=== PATIENT | female | born 1935 | race African-American/Black ===

== ENCOUNTER 2021-01-17 09:56 | Emergency (ER) | payer OTHER ==
[~2021-01-17] VITALS: Ht 154.9 cm; Wt 42.3 kg
[~2021-01-17 09:56] MED LIST: ALEN35TA47 PO; AMLO-187 PO; ATOR20TA58 PO; CALC500T54 PO; CARV25TA2 PO; CLOP75TA PO; FAMO20TA5 PO; HYDR-2868 PO; LACT1CAP19 PO; MAGN71.5 PO; OLME20TA17 PO; POTA-121 PO
--- NOTE | 2021-01-17 10:27 | PHYS DOC ---
Past Medical History Past Medical History: Anemia, Cancer, GERD, High Cholesterol, Hypertension, Renal Disease, TIA, Other Additional Past Medical Histor: OVARIAN CA Past Surgical History: Other Additional Past Surgical Histo: COLON RESECTION Smoking Status: Never Smoker Alcohol Use: None General Adult EDM: Chief Complaint: DIARRHEA HPI: HPI: Patient is a 85 year old female who presents with several days of diarrhea. The patient has chronic diarrhea, times years, which is overall unchanged with the exception of slight increased frequency over the last few days. She denies nausea vomiting. She denies anorexia. She denies abdominal pain or cramping. She denies hematochezia. She denies fevers or chills. She denies urinary symptoms. She has had chronic diarrhea since having a partial colectomy many years ago for reported treatment of polyps. The patient took Pepto-Bismol and noticed that her stool seemed darker than usual, so this concerned her. She reports that she felt like her stool might have been dark prior to taking Pepto-Bismol, and her stool became brown again, but then turned dark again. Her [id number] brought her in, and she reports that she was not as concerned about the dark stool, as much as having increased diarrhea. The patient has reportedly taken Imodium, with no relief. She has not reached out to her primary care physician recently, though her PCP is aware of the diarrheal illness issues, and she has reportedly referred her to GI. The patient is frustrated because she has not yet heard from GI about an appointment. Review of Systems: Review of Systems: Constitutional: Denies fever or chills. [] Respiratory: Denies cough or shortness of breath. [] Cardiovascular: Denies chest pain or edema. [] GI: Denies abdominal pain, nausea, vomiting. She has chronic diarrhea. Intermittent dark stools. No hematochezia reported. No dyschezia. : Denies urinary symptoms Musculoskeletal: Denies back pain or joint pain. [] Integument: Denies rash. [] Neurologic: Denies headache, focal weakness or sensory changes. [] Endocrine: Denies polyuria or polydipsia. [] Lymphatic: Denies swollen glands. [] Psychiatric: Denies depression or anxiety. [] Heart Score: C/O Chest Pain: No Risk Factors: Risk Factors: DM, Current or recent (<one month) smoker, HTN, HLP, family history of CAD, obesity. Risk Scores: Score 0 - 3: 2.5% MACE over next 6 weeks - Discharge Home Score 4 - 6: 20.3% MACE over next 6 weeks - Admit for Clinical Observation Score 7 - 10: 72.7% MACE over next 6 weeks - Early Invasive Strategies Allergies: Allergies: Allergies Coded Allergies Type Severity Reaction Last Updated Verified amlodipine Allergy Unknown 01/17/21 Yes aspirin Allergy Unknown 01/17/21 Yes Physical Exam: PE: Constitutional: Well developed, well nourished, no acute distress, non-toxic appearance. [] HENT: Normocephalic, atraumatic, mucous membranes are moist Eyes: Sclera anicteric Neck: Q midline, no tenderness Cardiovascular:Heart rate regular rhythm, 2 radial and dorsalis pedis pulses bilaterally Lungs & Thorax: Bilateral breath sounds clear to auscultation [] Abdomen: Abdomen is soft, nondistended, nontender to palpation, normal bowel sounds, no CVA tenderness, no flank or abdominal ecchymoses, no pulsatile mass, no palpable mass organomegaly Skin: Warm, dry, no erythema, no rash. [] Back: No tenderness, no CVA tenderness. [] Extremities: No tenderness, no cyanosis, no clubbing, ROM intact, no edema. [] Neurologic: Alert and oriented X 3, normal motor function, normal sensory function, no focal deficits noted. [] Psychologic: Affect normal, judgement normal, mood normal. [] EKG: EKG: [] Radiology/Procedures: Radiology/Procedures: [] Course & Med Decision Making: Course & Med Decision Making Pertinent Labs and Imaging studies reviewed. (See chart for details) I had initially ordered IV fluids, but the patient declined this. She does not appear to be clinically dehydrated. For several hours, she was unable to produce stool, but right before she was discharged, she did produce some stool. I went with the patient personally to the bathroom to help her obtain the stool sample. The stool appears to be brown. It is somewhat loose. It is not malodorous and is much that it does not appear to be consistent with C. difficile. Guaiac is negative for occult blood. I did order GI panel testing and C. difficile testing, which is pending at time of her discharge home. She was informed that she will be notified of any abnormal results or that would require antibiotic treatment or further intervention. I gave her the name of one of the GI physicians here, to help potentially expedite her follow-up. There is no current indication for further invasive exams, emergent imaging or admission at this time. The patient is comfortable with the plan for discharge home. Strict return precautions are given. Dragon Disclaimer: Dragon Disclaimer: This electronic medical record was generated, in whole or in part, using a voice recognition dictation system. Departure Departure Impression: Primary Impression: Chronic diarrhea Disposition: HOME / SELF CARE / HOMELESS Condition: STABLE Referrals: JOEL FRASER MD (PCP) ASTON PAYTON MD Patient Instructions: Diarrhea Additional Instructions: Return to the ER for fever 100.4 or higher, uncontrolled vomiting, severe abdominal pain, if you have grossly bloody stools, if you have evidence of dehydration, such as dry mouth, not urinating, not making saliva or tears or for any other concerns. Please follow-up with Dr. Payton with GI. Please also continue to coordinate care with your primary care physician. HARI CHESTER DO Jan 17, 2021 10:27
[2021-01-17] MEDS ORDERED: IV NORMAL SALINE 1000ML BAG 1,000 ML IV ONE (11:00)
[2021-01-17 11:24] LABS: BILIRUBIN,URINE NEGATIVE (NEG); CLARITY,URINE CLEAR; COLOR,URINE YELLOW; NITRITE,URINE NEGATIVE (NEG); PROTEIN,URINE NEGATIVE (NEG-TRACE); UROBILINOGEN,URINE 0.2 mg/dL (0.2 mg/dL)
[2021-01-17 11:43] LABS: BACTERIA,URINE FEW /HPF (0-FEW); RBC,URINE OCC /HPF (0-2); WBC,URINE OCC /HPF (0-4)
[2021-01-17 11:57] LABS: CALCIUM 7.3 mg/dL (8.5-10.1); CREATININE 1.2 mg/dL (0.6-1.0); GFR 51.4
[2021-01-17 11:59] LABS: BASO % 0 % (0-3); EOS # 0.1 x10^3/uL (0.0-0.7); EOS % 1 % (0-3); HEMATOCRIT 32.8 % (36.0-47.0); HEMOGLOBIN 10.5 g/dL (12.0-15.5); LYMPH # 1.2 x10^3/uL (1.0-4.8); LYMPH % 20 % (24-48); MEAN CORPUSCULAR HEMOGLOBIN 33 pg (25-35); MEAN CORPUSCULAR HGB CONC 32 g/dL (31-37); MEAN CORPUSCULAR VOLUME 101 fL (79-100); MONO # 0.5 x10^3/uL (0.0-1.1); MONO % 9 % (0-9); NEUT # 4.2 x10^3/uL (1.8-7.7); NEUT % 71 % (31-73); PLATELET COUNT 170 x10^3/uL (140-400); RED BLOOD COUNT 3.24 x10^6/uL (3.50-5.40); RED CELL DISTRIBUTION WIDTH 13.9 % (11.5-14.5)
[2021-01-17 12:03] LABS: ALBUMIN 2.7 g/dL (3.4-5.0); ALBUMIN/GLOBULIN RATIO 0.8 (1.0-1.7); TOTAL BILIRUBIN 0.3 mg/dL (0.2-1.0); TOTAL PROTEIN 6.3 g/dL (6.4-8.2)
[2021-01-17 12:33] VITALS: BP 158/74
[2021-01-17 16:49] LABS: FECAL OB PT NEGATIVE (NEG)
== END 2021-01-17 15:30 | disposition home or self-care (01) ==
LOC: ER 09:56
DX: K52.9 Noninfective gastroenteritis and colitis, unspecified (principal); K21.9 Gastro-esophageal reflux disease without esophagitis; E78.00 Pure hypercholesterolemia, unspecified; I10 Essential (primary) hypertension; N28.9 Disorder of kidney and ureter, unspecified; Z86.73 Personal history of transient ischemic attack (TIA), and cerebral infarction without residual deficits; Z86.2 Personal history of diseases of the blood and blood-forming organs and certain disorders involving the immune mechanism; Z90.49 Acquired absence of other specified parts of digestive tract; Z88.6 Allergy status to analgesic agent; Z88.8 Allergy status to other drugs, medicaments and biological substances
CPT/HCPCS: 36415; 80053; 81001; 82274; 83690; 85025; 87493; 87505; 99285

== ENCOUNTER 2021-03-17 10:35 | Emergency (ER) | payer OTHER ==
[~2021-03-17] VITALS: Ht 154.9 cm; Wt 39.0 kg
--- NOTE | 2021-03-17 11:25 | PHYS DOC ---
Past Medical History Past Medical History: Anemia, Cancer, GERD, High Cholesterol, Hypertension, Renal Disease, TIA, Other Additional Past Medical Histor: OVARIAN CA Past Surgical History: Hysterectomy, Other Additional Past Surgical Histo: COLON RESECTION Smoking Status: Never Smoker Alcohol Use: None General Adult EDM: Chief Complaint: OTHER COMPLAINTS HPI: HPI: Patient is a 85 year old female who presents with her daughter for evaluation of bruising around both eyes. 4 days ago, while she was walking up the ramp to go to her dentist appointment, she fell and landed on her face. She reported mild nasal discomfort at the time, but denied any other complaints. No loss of consciousness reported. She had no premonitory symptoms of dizziness, palpitations, dyspnea or chest pain. She has had no complaints since that time. She denies any severe headache, dizziness, vertigo, vision loss, chest pain, dyspnea, palpitations. She reports only mild nasal congestion. She has had no rhinorrhea or epistaxis. She denies any new injury or trauma since then. She denies neck pain, numbness or tingling or motor weakness. She denies back pain. She denies abdominal pain. She has been eating and drinking well. She does take Plavix. No history of serious or life-threatening bleeding reported. The reason she came in today is because when she woke up her daughter noticed the bruising around both eyes. She has otherwise been doing well and has no complaints. She normally ambulates with a walker, and she has been doing so since the time of fall Review of Systems: Review of Systems: Constitutional: Denies fever or chills. [] Eyes: Denies change in visual acuity. She denies vision loss. Bilateral periorbital ecchymoses. No eye pain. HENT: Mild nasal pain, mild nasal congestion. No epistaxis. Sore throat. Respiratory: Denies cough or shortness of breath. [] Cardiovascular: Denies chest pain or edema. [] GI: Denies abdominal pain, nausea, vomiting Musculoskeletal: Denies back pain or joint pain. [] Integument: Denies rash. Bruising around both eyes. Neurologic: Denies headache, focal weakness or sensory changes. Denies dizziness. Denies syncope. Psychiatric: Denies depression or anxiety. [] Heart Score: C/O Chest Pain: No Risk Factors: Risk Factors: DM, Current or recent (<one month) smoker, HTN, HLP, family history of CAD, obesity. Risk Scores: Score 0 - 3: 2.5% MACE over next 6 weeks - Discharge Home Score 4 - 6: 20.3% MACE over next 6 weeks - Admit for Clinical Observation Score 7 - 10: 72.7% MACE over next 6 weeks - Early Invasive Strategies Allergies: Allergies: Allergies Coded Allergies Type Severity Reaction Last Updated Verified amlodipine Allergy Unknown 01/17/21 Yes aspirin Allergy Unknown 01/17/21 Yes Physical Exam: PE: Constitutional: Well developed, well nourished, no acute distress, non-toxic appearance. [] HENT: Normocephalic. No scalp trauma noted. Bilateral, symmetric periorbital ecchymoses are noted. Minimal soft tissue swelling of the bilateral periorbital areas. There is minimal bruising on the right side of nasal bridge. Septum is midline, no rhinorrhea or epistaxis. No clots. No septal hematoma is noted. TMs are clear bilaterally. No hemotympanum. No otorrhea. No postauricular erythema, edema or ecchymosis noted. No scalp hematoma noted. Eyes: PERRL, EOMI, conjunctiva normal, no discharge. No nystagmus. Bilateral, symmetric periorbital ecchymosis. No tenderness of the periorbital or facial areas. Neck: Normal range of motion, no tenderness, supple, no stridor. Trachea is midline. No midline tenderness or step-offs. Cardiovascular: Bradycardic, regular, high 40s and rate in the 50s. +2 radial pulses bilaterally. Warm and well-perfused appearing. Lungs & Thorax: Bilateral breath sounds clear to auscultation [] Abdomen: Gladis is soft, nondistended, nontender to palpation Skin: Warm, dry, no erythema, no rash. Bilateral periorbital ecchymoses, as detailed above. Back: No tenderness, no CVA tenderness. No deformity or midline tenderness of the spine. Extremities: No tenderness, no cyanosis, no clubbing, ROM intact, no limb deformities. Pelvis is stable. No calf tenderness. Neurologic: Alert and oriented X 3, normal motor function, normal sensory function, no focal deficits noted. [] Psychologic: Affect normal, judgement normal, mood normal. She is pleasant and cooperative. EKG: EKG: EKG is interpreted at 1139 Rhythm is sinus bradycardia Rate is 45 bpm MT 162 ms No STEMI Radiology/Procedures: Radiology/Procedures: IMAGING REPORT Signed PATIENT: DAVID SANCHEZ ACCOUNT: [id number] : 1935 LOCATION: ER AGE: 85 SEX: F EXAM STATUS: REG ER ORD. PHYSICIAN: HARI CHESTER DO REASON: fall PROCEDURE: CT HEAD AND CERVICAL SPINE WO Examination: CT head, cervical spine, maxillofacial bones without contrast CT HEAD INDICATION: Fall, pain COMPARISON: None available Exposure: One or more of the following individualized dose reduction techniques were utilized for this examination: 1. Automated exposure control 2. Adjustment of the mA and/or kV according to patient size 3. Use of iterative reconstruction technique TECHNIQUE: 5 mm contiguous axial images were obtained from the skull base to the vertex in both bone and soft tissue algorithm. FINDINGS: Mild bilateral periventricular hypodensities likely represent ischemic disease. No evidence of acute intracranial hemorrhage. No extra-axial fluid collections. No mass effect or midline shift. Ventricular size is appropriate. Basal cisterns are patent. No fractures identified.Hendricks-white differentiation is preserved.Globes and orbits are within normal limits. Paranasal sinuses and mastoid air cells are clear. CT CERVICAL SPINE INDICATION: Reason: fall / Spl. Instructions: / History: COMPARISON: None Available. Technique: 2.5 mm contiguous axial images were obtained from the skull base through the cervicothoracic junction in both bone and soft tissue algorithm. Additional sagittal and coronal reconstructions were also performed. FINDINGS: Vertebral body height and alignment are maintained. Cervical lordosis is preserved. The lateral masses of C1 are aligned upon C2. No fractures identified. The bony canal is patent throughout. 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 Moderate intervertebral disc height loss identified in the cervical spine most at C5-C6, C6-C7 vertebral levels with large osteophyte formation. The paraspinous soft tissues are unremarkable. Visualized intracranial contents are unremarkable. Lung apices are clear. EXAM: CT FACIAL BONES WITHOUT CONTRAST History: Fall COMPARISON: None TECHNIQUE: Noncontrast images of the facial bones are performed. Coronal and sagittal reformatted images are also presented for interpretation. FINDINGS: Minimal displaced fractures of the anterior right and left nasal bones. Mild mucosal thickening bilateral ethmoidal sinuses. Small mucous retention cyst identified in the left maxillary sinus. The sphenoid sinuses, frontal sinuses are patent. Moderate amount of sclerosis identified in the right petrous temporal bone. The bilateral orbital globes appear intact. Retro-orbital fat is maintained. IMPRESSION: 1. Minimal displaced fractures of the anterior right and left nasal bones. 2. No acute intracranial findings. 3. No acute fracture of the cervical spine. 4. Moderate degenerative changes cervical spine. 5. Moderate amount of sclerosis identified in the right petrous temporal bone could be secondary to degenerative changes or metastasis. Electronically signed by: Jayson Lora MD (03/17/2021 12:52 PM) [id number] DICTATED and SIGNED BY: JAYSON LORA MD DATE: 03/17/21 [id number] 0 Course & Med Decision Making: Course & Med Decision Making Pertinent Labs and Imaging studies reviewed. (See chart for details) I have discussed the findings, differential diagnosis and plan of care with the patient. The patient has evidence of sinus bradycardia on telemetry. She is asymptomatic of any dizziness or syncope. She has a history of bradycardia episodes. She is taking 25 mg of carvedilol twice daily. I told her to hold this medication for now, I recommend she contact her PCP tomorrow to arrange for close follow-up. CT findings demonstrate nasal fracture, no other acute life- threatening process noted. She manifests no evidence of rhinorrhea, epistaxis, no evidence of septal hematoma on exam. There is no indication for further invasive exams, imaging or admission at this time based on current clinical presentation. The patient and her daughter are comfortable with the plan for discharge home. Strict return precautions are given. She verbalizes understanding of all instructions and return precautions provided. Dragon Disclaimer: Dragon Disclaimer: This electronic medical record was generated, in whole or in part, using a voice recognition dictation system. Departure Departure Impression: Primary Impression: Periorbital ecchymosis Additional Impressions: Nasal fracture Sinus bradycardia Fall Disposition: HOME / SELF CARE / HOMELESS Condition: STABLE Referrals: JOEL FRASER MD (PCP) Patient Instructions: Bradycardia, Facial or Scalp Contusion, Nasal Fracture Additional Instructions: Return to the ER for chest pain, shortness of breath, dizziness, passing out, weakness, if you have any new fall or injury or any other concerns. The bruising on your eyes should improve, but this may take several weeks. You do have evidence of a nasal fracture, there is no specific treatment for this. If you have discomfort, you may use [id number] Tylenol or ice packs to help with pain or swelling. Since you have a low heart rate, I recommend not taking your carvedilol until you contact your primary care doctor to discuss this further. This may be causing your low heart rate and could lead to low blood pressure, dizziness and passing out. HARI CHESTER DO Mar 17, 2021 11:25
[2021-03-17 11:53] LABS: BASO % 1 % (0-3); EOS % 0 % (0-3); HEMATOCRIT 33.6 % (36.0-47.0); HEMOGLOBIN 10.9 g/dL (12.0-15.5); LYMPH % 13 % (24-48); MEAN CORPUSCULAR HEMOGLOBIN 33 pg (25-35); MEAN CORPUSCULAR HGB CONC 33 g/dL (31-37); MEAN CORPUSCULAR VOLUME 100 fL (79-100); MONO # 0.5 x10^3/uL (0.0-1.1); MONO % 7 % (0-9); NEUT # 5.7 x10^3/uL (1.8-7.7); NEUT % 79 % (31-73); PLATELET COUNT 139 x10^3/uL (140-400); RED BLOOD COUNT 3.37 x10^6/uL (3.50-5.40); RED CELL DISTRIBUTION WIDTH 14.1 % (11.5-14.5); WHITE BLOOD COUNT 7.3 x10^3/uL (4.0-11.0)
[2021-03-17 11:57] LABS: BILIRUBIN,URINE NEGATIVE (NEG); CLARITY,URINE CLEAR; COLOR,URINE YELLOW; NITRITE,URINE NEGATIVE (NEG); PROTEIN,URINE 30 mg/dL (NEG-TRACE); UROBILINOGEN,URINE 0.2 mg/dL (0.2 mg/dL)
[2021-03-17 12:04] LABS: CALCIUM 6.2 mg/dL (8.5-10.1); CREATININE 1.8 mg/dL (0.6-1.0); GFR 32.2; POTASSIUM 3.7 mmol/L (3.5-5.1)
[2021-03-17 12:08] LABS: ALBUMIN 2.4 g/dL (3.4-5.0); ALBUMIN/GLOBULIN RATIO 0.6 (1.0-1.7); MAGNESIUM 0.7 mg/dL (1.8-2.4); PHOSPHORUS 4.1 mg/dL (2.6-4.7); TOTAL BILIRUBIN 0.3 mg/dL (0.2-1.0); TOTAL PROTEIN 6.3 g/dL (6.4-8.2)
[2021-03-17 12:09] LABS: BACTERIA,URINE 0 /HPF (0-FEW); HYALINE CASTS, URINE MODERATE /HPF; RBC,URINE 0 /HPF (0-2); WBC,URINE 0 /HPF (0-4)
--- NOTE | 2021-03-17 12:55 | RAD ---
Examination: CT head, cervical spine, maxillofacial bones without contrast CT HEAD INDICATION: Fall, pain COMPARISON: None available Exposure: One or more of the following individualized dose reduction techniques were utilized for thi s examination: 1. Automated exposure control 2. Adjustment of the mA and/or kV according to patient size 3. Use of iterative reconstruction technique TECHNIQUE: 5 mm contiguous axial images were obtained from the skull base to the vertex in both bone and soft tissue algorithm. FINDINGS: Mild bilateral periventricular hypodensities likely represent ischemic disease. No evidence of acute intracranial hemorrhage. No extra-axial fluid collections. No mass effect or midline shift. Ventricular size is appropriate. Basal cisterns are patent. No fractures identified.Hendricks-white differentiation is preserved.Globes and orbits are within normal l imits. Paranasal sinuses and mastoid air cells are clear. CT CERVICAL SPINE INDICATION: Reason: fall / Spl. Instructions: / History: COMPARISON: None Available. Technique: 2.5 mm contiguous axial images were obtained from the skull base through the cervicothorac ic junction in both bone and soft tissue algorithm. Additional sagittal and coronal reconstructions were also performed. FINDINGS: Vertebral body height and alignment are maintained. Cervical lordosis is preserved. The l ateral masses of C1 are aligned upon C2. No fractures identified. The bony canal is patent throughout. 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 Moderate intervertebral disc height loss identified in the cervical spine most at C5-C6, C6-C7 verteb ral levels with large osteophyte formation. The paraspinous soft tissues are unremarkable. Visualized intracranial contents are unremarkable. L kenyetta apices are clear. EXAM: CT FACIAL BONES WITHOUT CONTRAST History: Fall COMPARISON: None TECHNIQUE: Noncontrast images of the facial bones are performed. Coronal and sagittal reformatted corinne ges are also presented for interpretation. FINDINGS: Minimal displaced fractures of the anterior right and left nasal bones. Mild mucosal thicke delaney bilateral ethmoidal sinuses. Small mucous retention cyst identified in the left maxillary sinus. The sphenoid sinuses, frontal sinuses are patent. Moderate amount of sclerosis identified in the right petrous temporal bone. The bilateral orbital globes appear intact. Retro-orbital fat is maintained. IMPRESSION: 1. Minimal displaced fractures of the anterior right and left nasal bones. 2. No acute intracranial findings. 3. No acute fracture of the cervical spine. 4. Moderate degenerative changes cervical spine. 5. Moderate amount of sclerosis identified in the right petrous temporal bone could be secondary to degenerative changes or metastasis. Electronically signed by: Jayson Lora MD (03/17/2021 12:52 PM) [id number]
[2021-03-17 13:56] VITALS: BP 102/52
== END 2021-03-17 14:30 | disposition home or self-care (01) ==
LOC: ER 10:35
DX: S02.2XXA Fracture of nasal bones, initial encounter for closed fracture (principal); S00.12XA Contusion of left eyelid and periocular area, initial encounter; S00.11XA Contusion of right eyelid and periocular area, initial encounter; R00.1 Bradycardia, unspecified; K21.9 Gastro-esophageal reflux disease without esophagitis; E78.00 Pure hypercholesterolemia, unspecified; I10 Essential (primary) hypertension; Z86.73 Personal history of transient ischemic attack (TIA), and cerebral infarction without residual deficits; Z88.6 Allergy status to analgesic agent; Z88.8 Allergy status to other drugs, medicaments and biological substances; W18.39XA Other fall on same level, initial encounter; Y93.01 Activity, walking, marching and hiking; Y92.89 Other specified places as the place of occurrence of the external cause; Y99.8 Other external cause status
CPT/HCPCS: 36415; 70450; 70486; 72125; 80053; 81001; 83735; 84100; 85025; 85610; 85730; 99285-25

== ENCOUNTER 2021-05-30 19:10 | Emergency (ER) | payer OTHER ==
[~2021-05-30] VITALS: Ht 154.9 cm; Wt 40.8 kg
[~2021-05-30 19:10] MED LIST changes: -CONTRAST GIVEN. MC PRN; -IOHEXOL 350 MG/ML 100 ML VIAL. IV ONE
--- NOTE | 2021-05-30 20:21 | PHYS DOC ---
Past Medical History Past Medical History: Anemia, Cancer, GERD, High Cholesterol, Hypertension, Renal Disease, TIA, Other Additional Past Medical Histor: chronic diarrhea Past Surgical History: Hysterectomy, Other Additional Past Surgical Histo: bowel and stomach resection Smoking Status: Never Smoker Alcohol Use: None General Adult EDM: Chief Complaint: MECHANICAL FALL HPI: HPI: Patient is an 85-year-old female who presents to the emergency department following a fall. Patient reports that she tripped on the sidewalk fell face forward hitting her head. Patient is reporting pain and swelling to her right forehead. She denies any loss of consciousness, nausea, vomiting, neck or back pain, loss of bowel or bladder, saddle anesthesias. She is currently on blood thinners. Review of Systems: Review of Systems: HENT: See HPI GI: See HPI : See HPI Musculoskeletal: See HPI Integument: See HPI Neurologic: HPI] Heart Score: C/O Chest Pain: N/A Risk Factors: Risk Factors: DM, Current or recent (<one month) smoker, HTN, HLP, family history of CAD, obesity. Risk Scores: Score 0 - 3: 2.5% MACE over next 6 weeks - Discharge Home Score 4 - 6: 20.3% MACE over next 6 weeks - Admit for Clinical Observation Score 7 - 10: 72.7% MACE over next 6 weeks - Early Invasive Strategies Allergies: Allergies: Allergies Coded Allergies Type Severity Reaction Last Updated Verified amlodipine Allergy Intermediate unknown 05/30/21 Yes aspirin Allergy Intermediate unknown 05/30/21 Yes Physical Exam: PE: Constitutional: Well developed, well nourished, no acute distress, non-toxic a ppearance. [] HENT: Normocephalic, golf ball sized hematoma with abrasions and ecchymosis noted to right forehead, bilateral external ears normal, oropharynx moist, no oral exudates, nose normal. [] Eyes: PERRL,4mm bilaterally, no nystagmus, EOMI, conjunctiva normal, no discharge. [] Neck: Normal range of motion, no bony spinal tenderness, no step offs or deformities, supple, no stridor. [] Cardiovascular:Heart rate regular rhythm, no murmur, no chest wall tenderness with palpation, no crepitis [] Lungs & Thorax: Bilateral breath sounds clear to auscultation, no flail segments, [] Abdomen: Bowel sounds normal, soft, no tenderness, no masses, no pulsatile masses. [] Skin: Warm, dry, no erythema, no rash. [] Back: No tenderness, normal rom Extremities: No tenderness, no cyanosis, no clubbing, ROM intact, no edema, no pain with palpation of hips/pelvis/joints of ble. [] Neurologic: Alert and oriented X 3, normal motor function, normal sensory function, no focal deficits noted. [] Psychologic: Affect normal, judgement normal, mood normal. [] Current Patient Data: Vital Signs: Vital Signs Date Time Temp Pulse Resp B/P (MAP) Pulse Ox O2 Delivery O2 Flow Rate FiO2 05/30/21 19:10 97.5 51 18 161/77 (105) 100 Room Air 97.5 EKG: EKG: [] Radiology/Procedures: Radiology/Procedures: []Exam: CT head and cervical spine INDICATION: Fall, hit head TECHNIQUE: Sequential axial images through the head and cervical spine were obta ined without the administration of IV contrast. Exposure: One or more of the following in the visualized dose reduction techniq ues were utilized for this examination: 1. Automated exposure control 2. Adjustment of the MA and/or KV according to patient size 3. Use of iterative of reconstructive technique Comparisons: None FINDINGS: Head: No focal parenchymal lesion or hemorrhage is identified. There is no midline shift or sulcal effacement. No acute vascular territory infarction is identified. Hendricks-white distinction is preserved. The ventricular system is within normal limits without compression hydrocephalus. The basal cisterns are well maintained. Extra cranial soft tissue scalp contusion overlying the right frontal region. The visualized portions of the paranasal sinuses and mastoid air cells are well- pneumatized. No acute fractures. Cervical spine: Straightening of cervical spine which may positional. Vertebral body heights are well-maintained. Fracture through the cervical spine is not identified. Multilevel spondylotic change in cervical spine with degenerative disc disease greatest at C5-C6 and C6-C7. Mild bilateral facet arthropathy is also noted in the cervical spine. Visualized paraspinal soft tissues are unremarkable. IMPRESSION: 1. Extracranial soft tissue scalp contusion overlying the right frontal region without underlying osseous or intracranial abnormality. 2. Negative CT C-spine for acute traumatic injury. Electronically signed by: Winnie Bernal MD (05/30/2021 8:31 PM) [facility] DICTATED and SIGNED BY: WINNIE BERNAL MD DATE: 05/30/212025 Course & Med Decision Making: Course & Med Decision Making Pertinent Labs and Imaging studies reviewed. (See chart for details) Patient presents to the emergency department following a fall that occurred 1 hour prior to ER arrival. Patient reports hitting her right forehead on the concrete. She denies any loss of consciousness. She denies any cauda equina symptoms. Patient is on blood thinners. CT imaging of head neck was performed that showed no acute findings, Ice pack given for hematoma. Chest x-ray also showed no acute findings. Patient advised to take tylenol and ibuprofen and apply ice. I discussed with patient all findings and diagnostic testing as well as the need to follow-up with PCP for further evaluation and treatment or retu rn to the ER if any new or worsening symptoms. Strict return precautions were also discussed at length. Patient voiced understanding and agreement with the plan. Patient is hemodynamically stable at the time of disposition. Dragon Disclaimer: Eugenio Disclaimer: This electronic medical record was generated, in whole or in part, using a voice recognition dictation system. Departure Departure Impression: Primary Impression: Fall Qualified Codes: W19.XXXA - Unspecified fall, initial encounter Disposition: HOME / SELF CARE / HOMELESS Condition: GOOD Referrals: JOEL FRASER MD (PCP) Patient Instructions: Fall Prevention and Home Safety, Head Injury, Adult Additional Instructions: You were seen in the emergency department today following a fall. Imaging was performed of your head neck and chest which showed no acute findings. Please take Tylenol and ibuprofen for any pain at home. You can also apply ice to the hematoma on your head. Follow-up with your primary care provider tomorrow regarding your ER visit. Return to the emergency department if you develop worsening of your pain, neck or back pain, loss of bowel or bladder, numbness or tingling in your groin or down your legs, inability to bear weight or walk, intractable nausea or vomiting, confusion, poor coordination or speech problems. PANFILO LOPEZ APRN May 30, 2021 20:21
--- NOTE | 2021-05-30 20:34 | RAD ---
Exam: CT head and cervical spine INDICATION: Fall, hit head TECHNIQUE: Sequential axial images through the head and cervical spine were obtained without the admi nistration of IV contrast. Exposure: One or more of the following in the visualized dose reduction techniques were utilized for this examination: 1. Automated exposure control 2. Adjustment of the MA and/or KV according to patient size 3. Use of iterative of reconstructive technique Comparisons: None FINDINGS: Head: No focal parenchymal lesion or hemorrhage is identified. There is no midline shift or sulcal effaceme nt. No acute vascular territory infarction is identified. Hendricks-white distinction is preserved. The ventricular system is within normal limits without compression hydrocephalus. The basal cisterns are well maintained. Extra cranial soft tissue scalp contusion overlying the right frontal region. The visualized portions of the paranasal sinuses and mastoid air cells are well-pneumatized. No acute fractures. Cervical spine: Straightening of cervical spine which may positional. Vertebral body heights are well-maintained. Fracture through the cervical spine is not identified. Multilevel spondylotic change in cervical spine with degenerative disc disease greatest at C5-C6 and C6-C7. Mild bilateral facet arthropathy is also noted in the cervical spine. Visualized paraspinal soft tissues are unremarkable. IMPRESSION: 1. Extracranial soft tissue scalp contusion overlying the right frontal region without underlying os seous or intracranial abnormality. 2. Negative CT C-spine for acute traumatic injury. Electronically signed by: Winnie Zamudio MD (05/30/2021 8:31 PM) [facility]
[2021-05-30 21:20] VITALS: BP 154/70
--- NOTE | 2021-05-30 21:21 | RAD ---
Exam Date: 05/30/2021 7:37 PM XR CHEST 1V Indication: Reason: fall / Spl. Instructions: / History: . Comparison: November 23, 2019 FINDINGS/ IMPRESSION: The aorta is calcified. The cardiac silhouette is enlarged. Prominent reticular markings bilaterally suggest chronic lung di sease/scarring, most prominent in the left lung base. Calcified granulomas are seen in the lungs. There is no pleural effusion or pneumothorax. Electronically signed by: Oral Longoria MD (05/30/2021 9:18 PM) [facility]
== END 2021-05-30 21:29 | disposition home or self-care (01) ==
LOC: ER 19:10
DX: S00.83XA Contusion of other part of head, initial encounter (principal); K21.9 Gastro-esophageal reflux disease without esophagitis; E78.00 Pure hypercholesterolemia, unspecified; I12.9 Hypertensive chronic kidney disease with stage 1 through stage 4 chronic kidney disease, or unspecified chronic kidney disease; N18.9 Chronic kidney disease, unspecified; Z86.73 Personal history of transient ischemic attack (TIA), and cerebral infarction without residual deficits; Z88.1 Allergy status to other antibiotic agents; Z88.6 Allergy status to analgesic agent; W01.0XXA Fall on same level from slipping, tripping and stumbling without subsequent striking against object, initial encounter; Y93.89 Activity, other specified; Y92.89 Other specified places as the place of occurrence of the external cause; Y99.8 Other external cause status
CPT/HCPCS: 70450; 71045; 72125; 99284-25

== ENCOUNTER → 2021-05-30 | Outpatient (CLI) | payer OTHER ==
[~2021-05-30] MED LIST changes: +CONTRAST GIVEN. MC PRN; +IOHEXOL 350 MG/ML 100 ML VIAL. IV ONE
[2021-05-30 10:06] LABS: CREATININE 1.5 mg/dL (0.6-1.0); GFR 39.7
--- NOTE | 2021-05-30 13:25 | RAD ---
PQRS Compliance Statement: One or more of the following individualized dose reduction techniques were utilized for this examinat ion: 1. Automated exposure control 2. Adjustment of the mA and/or kV according to patient size 3. Use of iterative reconstruction technique CTA ABDOMEN AND PELVIS WITHOUT AND WITH IV CONTRAST 05/30/2021 10:37 AM Indication: Persistent diarrhea, mesenteric ischemia COMPARISON: None available. TECHNIQUE: Multiple axial CT images of the abdomen and pelvis were obtained before and after the admi nistration of nonionic contrast. Coronal and sagittal reformats are provided. FINDINGS: Reticular interstitial changes are identified at the lung bases, left greater than right. There is mi ld elevation left hemidiaphragm. Heart size is within normal limits. Aortic valvular calcifications a re present. No suspicious hepatic lesions are identified. Spleen, adrenal glands and pancreas are normal in appea katy. Gallbladder surgically absent. Abdominal aorta is normal in caliber with dense calcified atheromatous plaque. Abdominal aorta at the aortic hiatus measures 2.0 x 2.0 cm. Mild calcification identified at the origin of the celiac axis which is widely patent. Splenic artery, left gastric artery and proper hepatic artery are patent. Coa rse calcified plaque identified at the origin of the superior mesenteric artery which is otherwise no rmal in course and caliber. Mild stenosis of the origin of the left renal artery signal calcified ath eromatous plaque. Mild stenosis of the origin of the inferior mesenteric artery which opacifies bharat lly. Moderate calcified atheromatous plaque identified involving the pelvic vasculature which appear widely patent. Common iliac arteries, internal iliac arteries and external iliac arteries are normal in caliber without significant stenosis. No pathologically enlarged lymph nodes identified within the abdomen and pelvis. There is no free fluid or free intraperitoneal air. Surgical clips identified al mikal the ventral abdominal wall (series 5, image 106). There is circumferential wall thickening with mucosal hyperenhancement involving the rectum and dista l sigmoid colon. Small large bowel are otherwise normal in caliber without bowel obstruction. Gastroj ejunostomy is identified. There is bowel anastomosis in the right lower quadrant. Appendix is not def initively visualized. Urinary bladder is within normal limits given degree of distention. No suspicious pelvic mass. There is a high density cyst within the lateral inferior pole left kidney measuring 6 mm compatible with a cyst complicated by hemorrhage or protein. 2 mm nonobstructing calculi identified in the interpolar r ight kidney. No suspicious renal mass. No hydronephrosis. Osteopenia no significant compression fracture. There is a posterior disc osteophyte complex at L4-L5 with calcified right central disc extrusion resulting in right lateral recess stenosis and moderate to severe spinal canal stenosis. IMPRESSION: 1. Moderate to advanced atherosclerotic changes of the abdominal aorta and mesenteric vasculature wit hout high-grade stenosis of the superior or inferior mesenteric artery. 2. Circumferential wall thickening with mural edema and mucosal hyperenhancement along the rectum and distal sigmoid colon as may be seen with proctocolitis. 3. Bowel anastomosis identified in the right lower quadrant. Gastrojejunostomy changes are identified . No bowel obstruction. 4. Reticular interstitial changes are identified at the lung bases, left greater than right. Consider ation may be given for interstitial pneumonitis of infectious/inflammatory etiology. Chronic intersti tial lung disease could've similar appearance. 5. Right-sided nephrolithiasis measuring 2 mm in interpolar right kidney. Electronically signed by: Kasia Vazquez MD (05/30/2021 1:22 PM) [id number]
== END ==
LOC: CT 08:41
PROVIDERS: ATTEND Internal Medicine Gastroenterology
DX: I70.0 Atherosclerosis of aorta (principal); N20.0 Calculus of kidney; K55.1 Chronic vascular disorders of intestine; I35.1 Nonrheumatic aortic (valve) insufficiency; N28.89 Other specified disorders of kidney and ureter; J84.9 Interstitial pulmonary disease, unspecified; K91.89 Other postprocedural complications and disorders of digestive system; K63.89 Other specified diseases of intestine; J98.6 Disorders of diaphragm; M85.88 Other specified disorders of bone density and structure, other site; M25.78 Osteophyte, vertebrae; M51.26 Other intervertebral disc displacement, lumbar region; M48.061 Spinal stenosis, lumbar region without neurogenic claudication; Z90.49 Acquired absence of other specified parts of digestive tract
CPT/HCPCS: 36415; 74174; 82565; 84520; Q9967